=== PATIENT | male | born 1965 | race African-American/Black ===

== ENCOUNTER → 2021-08-30 | Day surgery (SDC) | payer MEDICARE, OTHER ==
[~2021-08-30] VITALS: Ht 162.6 cm; Wt 75.0 kg
[~2021-08-30] MED LIST: ASPI-630 PO; ATOR80TA72 PO; CARV20CP PO; ESOM40CA PO; EZET10TA20 PO; HYDR100T24 PO; IV RINGERS,LACTATED 1000ML 1,000 ML IV SCH; PRAS10TA10 PO; PROPOFOL 10 MG/ML (20ML) VIAL. IV ONE; TELM40TA PO
[2021-08-30 06:42] VITALS: BP 140/85
[2021-08-30 08:15] VITALS: BP 134/72
== END | disposition home or self-care (01) ==
LOC: ENDOS 06:26
PROVIDERS: ATTEND Internal Medicine Gastroenterology
DX: Z12.11 Encounter for screening for malignant neoplasm of colon (principal); K64.0 First degree hemorrhoids; K63.89 Other specified diseases of intestine; I25.10 Atherosclerotic heart disease of native coronary artery without angina pectoris; I50.9 Heart failure, unspecified; K21.9 Gastro-esophageal reflux disease without esophagitis; Z79.82 Long term (current) use of aspirin; Z79.899 Other long term (current) drug therapy; Z98.890 Other specified postprocedural states; Z87.891 Personal history of nicotine dependence
CPT/HCPCS: G0121; J2704; 45378